=== PATIENT | female | born 1955 ===

== ENCOUNTER 2023-11-13 08:59 | Outpatient (POV) | payer SELFPAY | END 2023-11-13 23:59 | disposition home or self-care (01) | LOC: SC 09:00 | PROVIDERS: Visit Provider Dermatology | DX: Z00.00 Encounter for general adult medical examination without abnormal findings (principal) ==

== ENCOUNTER 2024-08-19 08:10 | Outpatient (POV) | payer SELFPAY | END 2024-08-19 23:59 | disposition home or self-care (01) | LOC: SC 08-20 06:40 | PROVIDERS: Visit Provider Dermatology | DX: Z00.00 Encounter for general adult medical examination without abnormal findings (principal) ==